=== PATIENT | male | born 1985 | race American Indian/Alaskan Native ===

== ENCOUNTER 2019-12-06 00:49 | Emergency (ER) | payer SELFPAY ==
[2019-12-06] MEDS ORDERED: LIDOCAINE (1%) 10 MG/1 ML VIAL 20 ML MDV INFILTRATI ONE (01:00)
[2019-12-06] MEDS ORDERED: TETANUS,DIPH,PERTUSS(ACELL) VACCINE 0.5 ML SYRINGE IM ONE (01:00)
[2019-12-06 01:02] VITALS: BP 142/102
[2019-12-06] MEDS ORDERED: oxyCODONE /ACETAMINOPHEN 5-325MG TAB PO ONE (01:02)
[2019-12-06] MEDS ORDERED: ONDANSETRON 4 MG ODT TAB PO ONE (01:02)
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
== END 2019-12-06 01:15 | disposition left against medical advice (07) ==
LOC: ED 00:49
DX: S01.511A Laceration without foreign body of lip, initial encounter (principal); S09.8XXA Other specified injuries of head, initial encounter; Y04.2XXA Assault by strike against or bumped into by another person, initial encounter; Y93.89 Activity, other specified; Y92.89 Other specified places as the place of occurrence of the external cause; Y99.8 Other external cause status

== ENCOUNTER 2019-12-06 02:27 | Emergency (ER) | payer SELFPAY ==
[2019-12-06 02:37] VITALS: BP 155/110
== END 2019-12-06 04:01 | disposition left against medical advice (07) ==
LOC: ED 02:27
DX: Z53.21 Procedure and treatment not carried out due to patient leaving prior to being seen by health care provider (principal)

== ENCOUNTER 2019-12-07 08:18 | Emergency (ER) | payer SELFPAY ==
[2019-12-07 08:39] VITALS: BP 112/91
[2019-12-07] MEDS ORDERED: LET TOPICAL (LIDOCAINE/EPINEPHRINE/TETRACAINE) 3 ML TP ONE (10:23)
[2019-12-07] MEDS ORDERED: NEOMY 3.5 MG/BACIT 400 UNITS/POLY B 5000 UNITS/GM OINT PACKET TP ONE (10:23)
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
[2019-12-07] MEDS ORDERED: SODIUM CHLORIDE 0.9% IRR 500 ML BOTTLE IR ONE (11:00)
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
== END 2019-12-07 13:25 | disposition home or self-care (01) ==
LOC: ED 08:18
DX: S01.511A Laceration without foreign body of lip, initial encounter (principal); S01.111A Laceration without foreign body of right eyelid and periocular area, initial encounter; S02.85XA Fracture of orbit, unspecified, initial encounter for closed fracture; S09.8XXA Other specified injuries of head, initial encounter; F17.200 Nicotine dependence, unspecified, uncomplicated; F10.10 Alcohol abuse, uncomplicated; Z79.899 Other long term (current) drug therapy; Z88.8 Allergy status to other drugs, medicaments and biological substances; Y04.8XXA Assault by other bodily force, initial encounter; Y93.89 Activity, other specified; Y92.89 Other specified places as the place of occurrence of the external cause; Y99.8 Other external cause status
CPT/HCPCS: 70450; 70486; 72125; A6250